=== PATIENT | female | born 1975 | race Caucasian/White ===

== ENCOUNTER 2022-02-21 08:18 | Outpatient (CLI) | payer OTHER, MEDICAID, SELFPAY ==
--- NOTE | 2022-02-21 08:26 | MM_ITS ---
WS: [email or web address] SCREENING DIGITAL BREAST TOMOSYNTHESIS MAMMOGRAM WITH CAD HISTORY: SCREENING COMPARISON: 04/17/2018 and 11/16/2015 Bilateral CC and MLO with tomosynthesis and synthetic mammography submitted. Computer aided detection analyzed. Breast composition: There are scattered areas of fibroglandular density. In the anterior LEFT breast there is a new nodule measuring 6 mm in the medial breast near the 9:00 axis. Margins are well circum scribed. No additional abnormality. MM/[place] [id number] IMPRESSION: BI-RADS: 0-Incomplete: Need additional imaging evaluation FOLLOW UP: Need Additional Imaging Recommendation: LEFT breast ultrasound, limited. Mass localizes to the 9:00 axi s. Ultrasound recommended from from 8-10 o'clock.
== END 2022-02-21 08:19 | disposition home or self-care (01) ==
LOC: RAD 08:23
PROVIDERS: PCP Family Medicine; Visit Provider Family Medicine
DX: Z12.31 Encounter for screening mammogram for malignant neoplasm of breast (principal); Z12.4 Encounter for screening for malignant neoplasm of cervix
CPT/HCPCS: 77063; 77067; 87624

== ENCOUNTER 2022-03-09 11:32 | Outpatient (CLI) | payer OTHER, MEDICAID, SELFPAY ==
--- NOTE | 2022-03-09 11:39 | US_ITS ---
WS: [email or web address] ULTRASOUND LEFT BREAST HISTORY: Follow-up nodule noted on mammogram. COMPARISON: 02/21/2022 TECHNIQUE: 2-D and Doppler. The mass described on the LEFT mammogram is not visualized by ultrasound. Ultrasound is performed fro m 8-10 o'clock of the LEFT breast. US/US breast LT limited* [id number] IMPRESSION: BI-RADS: 3-Probably Benign FOLLOW-UP: 6 Month Follow-up Recommend diagnostic LEFT mammogram follow-up in 6 months. This is to reevaluat e the small nodule noted in the medial LEFT breast which is not visible on ultr asound. Diagnostic mammogram recommended. If this persists ultrasound should al so be attempted.
== END 2022-03-09 11:33 | disposition home or self-care (01) ==
LOC: RAD 11:32
PROVIDERS: PCP Family Medicine; Visit Provider Obstetrics & Gynecology
DX: N63.20 Unspecified lump in the left breast, unspecified quadrant (principal)
CPT/HCPCS: 76642

== ENCOUNTER 2022-09-11 11:05 | Outpatient (CLI) | payer OTHER, MEDICAID, SELFPAY ==
--- NOTE | 2022-09-11 11:18 | MM_ITS ---
WS: [email or web address] ADDITIONAL VIEWS LEFT MAMMOGRAM with tomosynthesis. LEFT BREAST ULTRASOUND HISTORY: N63.0 - Unspecified lump in unspecified breast COMPARISON: 02/21/2022, 04/17/2018 and 11/16/2015 LEFT MAMMOGRAM: Spot compression views and true ML with tomosynthesis and sympathetic mammography. High density mass measuring 6.8 mm persists in the medial LEFT breast near 9:00. Mass within the ante rior breast. Not significantly increased in size since the most recent exam. Very difficult to visual ized on the MLO projection. LEFT BREAST ULTRASOUND 2-D and color Doppler imaging submitted. Hypoechoic nodule which is well circumscribed and ovoid shaped is identified at 10:00, 1 cm from the nipple measuring 6 x 7 x 3 mm. This does correspond to the mammographic abnormality. Benign in appear ance although this is solid. MM/[place] [id number] IMPRESSION: BI-RADS: 3-Probably Benign FOLLOW UP: 6 Month Follow-up Recommend additional LEFT breast ultrasound evaluation in 6 months during otto zamora's annual mammogram.
--- NOTE | 2022-09-11 11:28 | US_ITS ---
WS: [email or web address] ADDITIONAL VIEWS LEFT MAMMOGRAM with tomosynthesis. LEFT BREAST ULTRASOUND HISTORY: N63.0 - Unspecified lump in unspecified breast COMPARISON: 02/21/2022, 04/17/2018 and 11/16/2015 LEFT MAMMOGRAM: Spot compression views and true ML with tomosynthesis and sympathetic mammography. High density mass measuring 6.8 mm persists in the medial LEFT breast near 9:00. Mass within the ante rior breast. Not significantly increased in size since the most recent exam. Very difficult to visual ized on the MLO projection. LEFT BREAST ULTRASOUND 2-D and color Doppler imaging submitted. Hypoechoic nodule which is well circumscribed and ovoid shaped is identified at 10:00, 1 cm from the nipple measuring 6 x 7 x 3 mm. This does correspond to the mammographic abnormality. Benign in appear ance although this is solid. US/US breast LT limited* [id number] IMPRESSION: BI-RADS: 3-Probably Benign FOLLOW UP: 6 Month Follow-up Recommend additional LEFT breast ultrasound evaluation in 6 months during otto zamora's annual mammogram.
== END 2022-09-11 11:06 | disposition home or self-care (01) ==
PROVIDERS: PCP Family Medicine; Visit Provider Obstetrics & Gynecology
DX: N63.20 Unspecified lump in the left breast, unspecified quadrant (principal)
CPT/HCPCS: 76642; 77061; G0279

== ENCOUNTER 2023-03-13 14:22 | Outpatient (CLI) | payer OTHER, MEDICAID, SELFPAY ==
--- NOTE | 2023-03-13 14:49 | MM_ITS ---
WS: [email or web address] DIAGNOSTIC BILATERAL DIGITAL BREAST TOMOSYNTHESIS MAMMOGRAPHY WITH CAD LEFT breast ultrasound, limited HISTORY: 6 month follow-up LEFT breast dense nodule. COMPARISON: 11/16/2015, 09/11/2022 and 02/21/2022 TECHNIQUE: Bilateral craniocaudad, mediolateral oblique, and mediolateral views are submitted with to mosmohan and FLORES. Computer aided detection utilized. Breast composition: There are scattered areas of fibroglandular density. High-density nodule measurin g 6 mm in the medial LEFT breast near 9:00 persists. No increase in size. No and additional nodules o r masses are identified. LEFT breast ultrasound, 6 month follow-up. Ultrasound at 10:00 demonstrates an ovoid cyst measuring 6 x 3 x 5 mm. There is a smaller adjacent mi nimally complex cyst also present. The larger cyst appears more cystic today. MM/[place] [id number] IMPRESSION: BI-RADS: 2-Benign FOLLOW UP: 1 Year Follow-up
== END 2023-03-13 14:23 | disposition home or self-care (01) ==
PROVIDERS: PCP Family Medicine; Visit Provider Obstetrics & Gynecology
DX: R92.8 Other abnormal and inconclusive findings on diagnostic imaging of breast (principal)
CPT/HCPCS: 76642; 77062; G0279

== ENCOUNTER 2024-06-10 11:18 | Outpatient (CLI) | payer OTHER, SELFPAY ==
--- NOTE | 2024-06-10 11:30 | MM_ITS ---
WS: [email or web address] DIAGNOSTIC BILATERAL DIGITAL BREAST TOMOSYNTHESIS MAMMOGRAPHY WITH CAD LEFT breast ultrasound, limited HISTORY: N63.0 - Unspecified lump in unspecified breast, pain LEFT breast. COMPARISON: 03/13/2023, 02/21/2022 TECHNIQUE: Bilateral craniocaudad, mediolateral oblique, and mediolateral views are submitted with to mosynthesis and SM. LEFT spot compression CC and MLO. Computer aided detection utilized. Breast composition: There are scattered areas of fibroglandular density. Markers are placed along the areas of pain along the medial and lateral aspect of the LEFT breast abo ve the nipple. No underlying abnormality is identified. Reidentified are 2 nodules measuring approxim ately 5 mm in the more anterior LEFT breast towards 10:00 that were described as cysts on prior studi es. These did not appear to have increased in size. RIGHT breast is negative. LEFT breast ultrasound, limited. Areas of pain at 10 and 3:00 are negative. There is no underlying abnormality. There is a hypoechoic mass with echogenic rim at 10:00, 1 cm from the nipple. This is in a similar location of previously d escribed cyst. This cyst has changed in size and is now taller than it is wide and there is some inte rnal echoes. Margins are echogenic. This complex cyst measures 0.6 x 0.5 x 0.5 cm. MM/MM diag BI tomosynthesis [id number] IMPRESSION: BI-RADS: 4- Suspicious Finding - Biopsy Should be Considered FOLLOW UP: Biopsy Recommended Ultrasound-guided biopsy recommended hypoechoic mass LEFT breast at 10:00. Notified Papito Hill MD at 06/10/2024 1:04 PM. Message was left on the an [employer] service recommending the biopsy follow-up.
--- NOTE | 2024-06-10 12:00 | US_ITS ---
WS: [email or web address] DIAGNOSTIC BILATERAL DIGITAL BREAST TOMOSYNTHESIS MAMMOGRAPHY WITH CAD LEFT breast ultrasound, limited HISTORY: N63.0 - Unspecified lump in unspecified breast, pain LEFT breast. COMPARISON: 03/13/2023, 02/21/2022 TECHNIQUE: Bilateral craniocaudad, mediolateral oblique, and mediolateral views are submitted with to mosynthesis and SM. LEFT spot compression CC and MLO. Computer aided detection utilized. Breast composition: There are scattered areas of fibroglandular density. Markers are placed along the areas of pain along the medial and lateral aspect of the LEFT breast abo ve the nipple. No underlying abnormality is identified. Reidentified are 2 nodules measuring approxim ately 5 mm in the more anterior LEFT breast towards 10:00 that were described as cysts on prior studi es. These did not appear to have increased in size. RIGHT breast is negative. LEFT breast ultrasound, limited. Areas of pain at 10 and 3:00 are negative. There is no underlying abnormality. There is a hypoechoic mass with echogenic rim at 10:00, 1 cm from the nipple. This is in a similar location of previously d escribed cyst. This cyst has changed in size and is now taller than it is wide and there is some inte rnal echoes. Margins are echogenic. This complex cyst measures 0.6 x 0.5 x 0.5 cm. US/US breast LT limited* [id number] IMPRESSION: BI-RADS: 4- Suspicious Finding - Biopsy Should be Considered FOLLOW UP: Biopsy Recommended Ultrasound-guided biopsy recommended hypoechoic mass LEFT breast at 10:00. Notified Papito Hill MD at 06/10/2024 1:04 PM. Message was left on the an [email or web address] service recommending the biopsy follow-up.
== END 2024-06-10 11:19 | disposition home or self-care (01) ==
LOC: RAD 11:26
PROVIDERS: PCP Family Medicine; Visit Provider Obstetrics & Gynecology
DX: N63.22 Unspecified lump in the left breast, upper inner quadrant (principal); R92.323 Mammographic fibroglandular density, bilateral breasts
CPT/HCPCS: 76642; 77062; G0279

== ENCOUNTER 2024-07-09 10:36 | Outpatient (CLI) | payer OTHER, SELFPAY ==
--- NOTE | 2024-07-09 10:41 | US_ITS ---
WS: [email or web address] ULTRASOUND-GUIDED LEFT BREAST BIOPSY HISTORY: Abnormal mammogram, change in a cyst previously described. COMPARISON: 06/10/2024, 03/13/2023 Procedure, risks and complications are explained to the patient. Medications are reviewed. Consent is obtained. The mass in the LEFT breast is localized with ultrasound. Mass localizes to 10:00, 1 cm from the nipp le. Skin is cleansed with ChloraPrep and anesthetized with 1% buffered lidocaine. Small dermatome is made. Under sterile conditions mass is biopsied with a 14-gauge Achieve needle. Multiple core biopsie s are performed. Material placed in formalin and sent to pathology for review. No complications encou ntered. Breast tissue marker ([employer] ultrasound enhanced ribbon): Single. Patient left the radiology suite with no complications. Patient is instructed to return to [facility] or [facility] with any concerns. US/[place] [id number] IMPRESSION: 1. Uncomplicated core needle biopsy LEFT breast mass at 10:00, 1 cm from the n ipple. PATHOLOGY: Benign breast parenchyma with partial cyst wall and associated small er benign cyst. No atypia or malignancy. RECOMMENDATION: 6-month LEFT breast localized ultrasound follow-up. Pathology and ultrasound findings are concordant. This cyst did partially colla pse after the first couple biopsies. Clip was placed at the site of the cyst.
== END 2024-07-09 10:37 | disposition home or self-care (01) ==
LOC: RAD 10:38
PROVIDERS: PCP Family Medicine; Visit Provider Obstetrics & Gynecology
DX: N60.12 Diffuse cystic mastopathy of left breast (principal); N64.89 Other specified disorders of breast
CPT/HCPCS: 19083; 88305

== ENCOUNTER 2024-12-16 14:40 | Outpatient (CLI) | payer OTHER, SELFPAY ==
--- NOTE | 2024-12-16 15:00 | US_ITS ---
WS: [email or web address] ULTRASOUND LEFT BREAST HISTORY: 6-month follow-up LEFT breast biopsy 07/09/2024 COMPARISON: 07/09/2024, 06/10/2024 TECHNIQUE: 2-D and Doppler. There is no recurrent mass or suspicious abnormality along the 10:00 axis of the LEFT breast, 1 cm from the nipple. Clip is not identified either. US/US breast [place] complete [id number] IMPRESSION: BI-RADS: 2- Benign FOLLOW-UP: See Report Return to annual screening mammography. Annual screening mammogram recommended for May 2025.
== END 2024-12-16 14:41 | disposition home or self-care (01) ==
PROVIDERS: PCP Family Medicine; Visit Provider Nurse Practitioner Women's Health
DX: Z98.890 Other specified postprocedural states (principal)
CPT/HCPCS: 76641